=== PATIENT | female | born 1980 | race Caucasian/White ===

== ENCOUNTER 2024-07-10 23:54 | Inpatient (IN) | payer OTHER, SELFPAY ==
[2024-07-11 00:45] LABS: Specific Gravity 1.026 (1.005-1.030); Specific Gravity 1.027 (1.005-1.030); Sqamous Epithelial <5 /HPF (None Seen); Urine Bacteria 20-50 /HPF (<20); Urine Bilirubin NEGATIVE (Negative); Urine Blood 2+ (Negative); Urine Clarity Extremely Turbid (Clear); Urine Color Yellow (Yellow); Urine Culture Reflex Order REFLEXED; Urine Glucose NEGATIVE (Negative); Urine Ketones 1+ (Negative); Urine Microscopic Reflex YN ORDER UMIC; Urine Mucus 1+ /HPF (None Seen); Urine Nitrite NEGATIVE (Negative); Urine Protein 1+ (Negative); Urine Urobilinogen Normal (Normal); Urine pH 5.5 (5.0-7.0)
[2024-07-11] MEDS ORDERED: ONDANSETRON 4 MG/2 ML VIAL ONE (00:52)
[2024-07-11] MEDS ORDERED: NA CHLORIDE 0.9% 1,000 ML ONE ×2 (00:52→03:51)
[2024-07-11] MEDS ORDERED: MORPHINE 4 MG/ML SYR ONE ×2 (00:52→03:50)
[2024-07-11 00:57] LABS: Absolute Lymphocytes (CBC) 2.1 K/uL (0.7-4.9); Absolute Monocytes 1.9 K/uL (0.1-1.3); Basophils % 0.3 % (0-1.3); Eosinophils % 0.1 % (0-4.4); Hematocrit 41.7 % (36.0-45.0); Hemoglobin 13.6 g/dL (12.0-15.0); Lymphocytes % 13.9 % (15.3-44.8); MCH 29.5 pg (27.0-35.0); MCHC 32.7 g/dL (32.0-36.0); MCV 90.2 fL (80-100); MPV 9.6 fL (7.6-11.3); Monocytes % 12.5 % (3.3-12.3); Neutrophils % 73.2 % (41.7-73.7); Platelets 368 thou/uL (152-406); RBC Red Blood Cell Count 4.63 M/uL (3.86-4.86); Red Cell Distribution Width 14.9 % (12.1-15.2)
[2024-07-11 01:03] LABS: PT Prothrombin Time 14.3 SECONDS (9.4-12.5); PTT, Activated Partial Thromb 30.1 SECONDS (24.3-36.9); Protime INR 1.29
[2024-07-11] MEDS ORDERED: CEFTRIAXONE 1000 MG/VIAL ONE (01:08)
[2024-07-11] MEDS ORDERED: NA CHLORIDE 0.9% 100 ML ONE (01:08)
[2024-07-11 01:10] LABS: AST/SGOT 12 U/L (15-37); Albumin/Globulin Ratio 0.6 (1.1-1.8); Alkaline Phosphatase 86 U/L (45-117); Anion Gap 9.4 mEq/L (5.0-15.0); BUN Blood Urea Nitrogen 19 mg/dL (7-18); Bicarbonate 29 mEq/L (21-32); Bilirubin Total 0.5 mg/dL (0.2-1.0); Glomerular Filtration Rate 68 ml/min (=/>90); Glucose Level 98 mg/dL (74-106); Lipase 14 U/L (13-75); Potassium 3.4 mEq/L (3.5-5.1); Sodium Level 131 mEq/L (136-145)
[2024-07-11 01:12] LABS: ALT/SGPT < 14 U/L (13-56)
--- NOTE | 2024-07-11 03:43 | RAD REPORT ---
EXAM: CT Abdomen and Pelvis With Intravenous Contrast CLINICAL HISTORY: ABD pain, RUQ pain w/ nausea / vomiting for 3 days . TECHNIQUE: Axial computed tomography images of the abdomen and pelvis with intravenous contrast. Sagittal and coronal reformatted images were created and reviewed. This CT exam was performed using one or more of the following dose reduction techniques: automated exposure control, adjustment of the mA a nd/or kV according to patient size, and/or use of iterative reconstruction technique. COMPARISON: No relevant prior studies available. FINDINGS: Lung bases: Bilateral subsegmental atelectasis/pleural parenchymal scar. ABDOMEN: Liver: Unremarkable. No mass. Gallbladder and bile ducts: Unremarkable. No calcified stones. No ductal dilation. Pancreas: Unremarkable. No mass. No ductal dilation. Spleen: Unremarkable. No splenomegaly. Adrenals: Unremarkable. No mass. Kidneys and ureters: Heterogeneous right renal cortical enhancement with perinephric stranding and minimal urothelial thickening. Lobulated left renal contour with areas of cortical thinning/scar. No hydronephrosis. Stomach and bowel: Moderate stool within the proximal to mid large bowel. No obstruction. No muco anamika thickening. PELVIS: Appendix: Normal caliber appendix. No findings to suggest acute appendicitis. Bladder: The urinary bladder is partially decompressed. Reproductive: Unremarkable as visualized. ABDOMEN and PELVIS: Intraperitoneal space: Unremarkable. No free air. No significant fluid collection. Bones/joints: No acute fracture. No dislocation. Soft tissues: Unremarkable. Vasculature: Unremarkable. No abdominal aortic aneurysm. Lymph nodes: Unremarkable. No enlarged lymph nodes. IMPRESSION: 1. Findings suggestive of right-sided pyelonephritis. 2. Other findings as above. Electronically signed by: Juan Luis Waterman MD 07/11/2024 03:39 AM [facility] Due to temporary technical issues with the PACS/[employer] reporting system, reports are being sunny d by the in-house radiologist without review as a courtesy to ensure prompt reporting the interpreting radiologist is fully responsible for the content of the report. Transcribed Date/Time: 07/11/2024 3:43 AM
--- NOTE | 2024-07-11 03:51 | ER ---
Nurse's Notes [facility] Name: Aicha Levi Age: 44 yrs Sex: Female : 1980 Arrival Date: 07/10/2024 Time: 23:54 Bed 5 Private MD: Diagnosis: Pyelonephritis acute;Sepsis, unspecified organism Presentation: 07/11 00:00 Chief complaint: Patient states: NUMBNESS OF FACE, RIGHT UPPER QUADRANT PAIN, N/V FOR ha1 THE PAST THREE DAYS. 00:00 Coronavirus screen: At this time, the client does not indicate any symptoms associated ha1 with coronavirus-19. Ebola Screen: No symptoms or risks identified at this time. Initial Sepsis Screen: Does the patient meet any 2 criteria? No. Patient's initial sepsis screen is negative. Does the patient have a suspected source of infection? No. Patient's initial sepsis screen is negative. Risk Assessment: Do you want to hurt yourself or someone else? Patient reports no desire to harm self or others. Onset of symptoms was July 11, 2024. 00:00 Method Of Arrival: Ambulatory ha1 00:00 Acuity: JD 3 ha1 Triage Assessment: 00:33 General: Appears uncomfortable, Behavior is cooperative. Pain: Complains of pain in ha1 right upper quadrant Pain radiates to back Pain currently is 9 out of 10 on a pain scale. Neuro: Level of Consciousness is awake, alert, obeys commands, Oriented to person, place, time, situation. GI: Reports nausea, vomiting. 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 - Infectious Disease History:: Denies. - Social history:: Smoking status: Patient reports the use of cigarette tobacco products, smokes one-half pack cigarettes per day. Screenin:59 [facility] ED Fall Risk Assessment (Adult) History of falling in the last 3 months, cp4 including since admission No falls in past 3 months (0 pts) Confusion or Disorientation No (0 pts) Intoxicated or Sedated No (0 pts) Impaired Gait No (0 pts) Mobility Assist Device Used No (0 pt) Altered Elimination No (0 pt) Score/Fall Risk Level 0 - 2 = Low Risk Oriented to surroundings, Maintained a safe environment, Assessed \T\ reinforced patient's understanding of fall precautions, Hourly rounding (assess needs \T\ fall precautionary measures) done. Abuse screen: Denies threats or abuse. Nutritional screening: No deficits noted. Tuberculosis screening: No symptoms or risk factors identified. Assessment: 00:59 General: Appears in no apparent distress. uncomfortable, Behavior is calm, cooperative, cp4 appropriate for age. Pain: Complains of pain in back and abdomen and right upper quadrant Pain does not radiate. Pain currently is 9 out of 10 on a pain scale. Neuro: Level of Consciousness is awake, alert, obeys commands, Oriented to person, place, time, situation. Cardiovascular: Patient's skin is warm and dry. Rhythm is sinus tachycardia. Respiratory: Airway is patent Respiratory effort is even, unlabored. GI: Abdomen is flat, non-distended, Bowel sounds present X 4 quads. Abdomen is tender to palpation in right upper quadrant Reports nausea, vomiting. : No signs and/or symptoms were reported regarding the genitourinary system. EENT: No signs and/or symptoms were reported regarding the EENT system. Derm: No signs and/or symptoms reported regarding the dermatologic system. Musculoskeletal: No signs and/or symptoms reported regarding the musculoskeletal system. 02:00 Reassessment: Patient appears in no apparent distress at this time. Patient and/or cp4 family updated on plan of care and expected duration. Pain level reassessed. Patient is alert, oriented x 3, equal unlabored respirations, skin warm/dry/pink. 03:00 Reassessment: Patient appears in no apparent distress at this time. Patient and/or cp4 family updated on plan of care and expected duration. Pain level reassessed. Patient is alert, oriented x 3, equal unlabored respirations, skin warm/dry/pink. 04:00 Reassessment: Patient appears in no apparent distress at this time. Patient and/or cp4 family updated on plan of care and expected duration. Pain level reassessed. Patient is alert, oriented x 3, equal unlabored respirations, skin warm/dry/pink. 05:00 Reassessment: Patient appears in no apparent distress at this time. Patient and/or cp4 family updated on plan of care and expected duration. Pain level reassessed. Patient is alert, oriented x 3, equal unlabored respirations, skin warm/dry/pink. Vital Signs: 00:09 BP 130 / 87 RA Supine; Pulse 125 RA; Resp 14; Temp 99.7; Pulse Ox 100% ; Weight 54.43 ty kg (R); Height 5 ft. 1 in. ; Pain 10/10; 01:33 BP 105 / 61; Pulse 122; Resp 18; Pulse Ox 98% ; cp4 02:43 BP 116 / 87; Pulse 118; Resp 18; Pulse Ox 99% ; cp4 03:33 BP 102 / 62; Pulse 114; Resp 18; Pulse Ox 98% ; cp4 04:12 Temp 97.6(T); ha1 04:30 BP 103 / 67; Pulse 113; Resp 18; Pulse Ox 99% ; cp4 05:30 BP 122 / 89; Pulse 111; Resp 18; Pulse Ox 99% ; cp4 00:09 Body Mass Index 22.67 (54.43 kg, 154.94 cm) ty 00:09 Pain Scale: Adult ty ED Course: 07/10 23:58 Patient arrived in ED. [id number] 23:58 Bryan Johnston MD is Attending Physician. rt 07/11 00:09 Patient has correct armband on for positive identification. Bed in low position. Call ty light in reach. Door closed. Noise minimized. Lights dimmed. Moved to private room. Pillow given. Head of bed elevated. Client placed on continuous cardiac and pulse oximetry monitoring. NIBP monitoring applied. 00:33 Triage completed. ha1 00:39 Stacie Rivas is Primary Nurse. cp4 00:45 Initial lab(s) drawn, by me, sent to lab. First set of blood cultures drawn by me, cp4 Second set of blood cultures drawn by me, Urine collected: clean catch specimen, cloudy, EKG done, by ED staff, reviewed by Bryan Johnston MD. 00:59 Provided Education on: abdominal pain. cp4 00:59 No provider procedures requiring assistance completed. Inserted saline lock: 22 gauge cp4 in right antecubital area, using aseptic technique. Blood collected. Flushed with 10 mL NS. 01:34 CT Abd/Pelvis - IV Contrast Only In Process Unspecified. EDMS 02:17 Contact information for family . ty 03:51 Adama Johnson MD is Hospitalizing Provider. rt 05:43 Patient admitted, IV remains in place. cp4 05:44 Arm band placed on right wrist. Patient placed in waiting room. cp4 Administered Medications: 00:56 Drug: NS 0.9% IV 1000 ml IV at 1 bolus Per protocol; to be given as a bolus over 60 cp4 minutes Route: IV; Rate: 1 bolus; Site: right antecubital; 02:15 Follow up: Response: No adverse reaction; IV Status: Completed infusion cp4 00:56 Drug: morphine IVP or IV 4 mg IVP once over 4 mins Route: IVP; Infused Over: 4 mins; cp4 Site: right antecubital; 01:41 Follow up: Response: No adverse reaction cp4 00:56 Drug: Ondansetron IVP 4 mg IVP once; over 2 minutes Route: IVP; Site: right antecubital;cp4 01:41 Follow up: Response: No adverse reaction cp4 01:14 Drug: Rocephin - Rocephin (cefTRIAXone) IVPB 2 grams IVPB once over 30 mins; (mix in cp4 100 mL NS) Route: IVPB; Infused Over: 30 mins; Site: right antecubital; 01:41 Follow up: Response: No adverse reaction; IV Status: Completed infusion cp4 03:55 Drug: morphine IVP or IV 4 mg IVP once over 4 mins Route: IVP; Infused Over: 4 mins; cp4 Site: right antecubital; 04:07 Follow up: Response: No adverse reaction; Pain is decreased cp4 03:55 Drug: NS 0.9% IV 1000 ml IV at 1000 ml once; to be given as a bolus over 60 minutes cp4 Route: IV; Rate: 1000 ml; Site: right antecubital; 05:43 Follow up: Response: No adverse reaction; IV Status: Completed infusion cp4 Medication: 00:59 VIS not applicable for this client. cp4 Outcome: 03:51 Decision to Hospitalize by Provider. rt 05:43 Admitted to Med/surg accompanied by nurse, via wheelchair, with chart, cp4 05:43 Condition: stable 05:43 Instructed on the need for admit, 05:48 Patient left the ED. cp4 Signatures: Dispatcher [employer] Briana [id number] Becka Atkinson, RN RN ha1 Bryan Johnston MD MD rt Stacie Rivas cp4 Ronald Mckeon ty Corrections: (The following items were deleted from the chart) 02:25 02:17 Call prior to discharge ty ty
--- NOTE | 2024-07-11 03:52 | EDPHYS ---
Physician Documentation [facility] Name: Aicha Levi Age: 44 yrs Sex: Female : 1980 Arrival Date: 07/10/2024 Time: 23:54 Bed 5 Private MD: ED Physician Bryan Johnston HPI: 07/11 01:28 This 44 yrs old Female presents to ER via Ambulatory with complaints of Pelvic Pain, rt Numbness Of Face, Nausea/Vomiting. 01:28 Patient presents to the ED with pain to the right flank rating to the right lower rt quadrant starting about 3 days ago. She reported numbness to the face but denies any other numbness, weakness. Reports nausea, vomiting. Denies other acute complaints, symptoms are moderate in severity, no other aggravating alleviating factors.. 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 - Infectious Disease History:: Denies. - Social history:: Smoking status: Patient reports the use of cigarette tobacco products, smokes one-half pack cigarettes per day. ROS: 01:28 Constitutional: Negative for fever, chills, and weight loss, Cardiovascular: Negative rt for chest pain, palpitations, and edema, Respiratory: Negative for shortness of breath, cough, wheezing, and pleuritic chest pain, MS/Extremity: Negative for injury and deformity, Skin: Negative for injury, rash, and discoloration, 01:28 Abdomen/GI: Positive for abdominal pain, nausea and vomiting, Exam: 01:28 Constitutional: This is a well developed, well nourished patient who is awake, alert, rt and in no acute distress. Chest/axilla: Normal chest wall appearance and motion. Nontender with no deformity. No lesions are appreciated. Cardiovascular: Regular rate and rhythm with a normal S1 and S2. No gallops, murmurs, or rubs. Normal PMI, no JVD. No pulse deficits. Respiratory: Lungs have equal breath sounds bilaterally, clear to auscultation and percussion. No rales, rhonchi or wheezes noted. No increased work of breathing, no retractions or nasal flaring. Skin: Warm, dry with normal turgor. Normal color with no rashes, no lesions, and no evidence of cellulitis. MS/ Extremity: Pulses equal, no cyanosis. Neurovascular intact. Full, normal range of motion. 01:28 ECG was reviewed by the Attending Physician. 01:28 Neuro: Cranial nerves II through XII intact, strength and sensation intact in upper and lower extremities, no ataxia on [id number], 01:29 Abdomen/GI: Tenderness to the right flank, right lower quadrant, no rebound, guarding, rt distention, Vital Signs: 00:09 BP 130 / 87 RA Supine; Pulse 125 RA; Resp 14; Temp 99.7; Pulse Ox 100% ; Weight 54.43 ty kg (R); Height 5 ft. 1 in. ; Pain 10/10; 01:33 BP 105 / 61; Pulse 122; Resp 18; Pulse Ox 98% ; cp4 02:43 BP 116 / 87; Pulse 118; Resp 18; Pulse Ox 99% ; cp4 03:33 BP 102 / 62; Pulse 114; Resp 18; Pulse Ox 98% ; cp4 04:12 Temp 97.6(T); ha1 04:30 BP 103 / 67; Pulse 113; Resp 18; Pulse Ox 99% ; cp4 05:30 BP 122 / 89; Pulse 111; Resp 18; Pulse Ox 99% ; cp4 00:09 Body Mass Index 22.67 (54.43 kg, 154.94 cm) ty 00:09 Pain Scale: Adult ty MDM: 00:08 Medical Screening Exam initiated rt 03:51 Differential diagnosis: Pyelonephritis, kidney stone, ectopic , sepsis. Data rt reviewed: vital signs, nurses notes, lab test result(s), EKG, radiologic studies. Consideration of Admission/Observation Patient was admitted/placed on observation. Management of patient was discussed with the following: Hospitalist: Agrees to admit. I considered the following discharge prescriptions or medication management in the emergency department Medications were administered in the Emergency Department. See MAR. Independent interpretation of the following test(s) in the Emergency Department CT Scan: My interpretation is No ureteral stone seen on interpretation of CT scan images. Test considered but Not performed: CT: Patient reported a facial numbness, this is not reproducible on exam, her symptoms seem to be mostly related to the abdomen, I do not suspect a CVA, neuroimaging is not indicated. Post IV fluid administration reassessment for Sepsis: Sepsis focused reassessment complete. Focused assessment performed: July 11, 2024 at 02:00 Heart: Regular rate/rhythm. Lungs: noted to be clear bilaterally. Capillary refill examination performed. Capillary refill noted to be brisk. Skin examination performed. Skin noted to be pink. Neuro: Cardio: Cardiovascular exam improved from previous exam. Heart rate and blood pressure have improved. Respiratory: Respiratory exam did not improve from previous exam. Counseling: I had a detailed discussion with the patient and/or guardian regarding the historical points, exam findings, and any diagnostic results supporting the discharge/admit diagnosis, lab results, radiology results, the need for further work-up and treatment in the hospital. 03:53 Response to treatment: the patient's symptoms have markedly improved after treatment. rt 07/11 00:15 Order name: Blood Culture Adult (2) rt 07/11 00:15 Order name: CBC with Diff; Complete Time: 00:58 rt 07/11 00:15 Order name: CMP; Complete Time: 01:18 rt 07/11 00:15 Order name: Lactate w/ 2H reflex if indic.; Complete Time: 01:18 rt 07/11 00:15 Order name: Protime (+inr); Complete Time: 01:18 rt 07/11 00:15 Order name: Ptt, Activated; Complete Time: 01:18 rt 07/11 00:15 Order name: Urinalysis w/ reflexes; Complete Time: 00:58 rt 07/11 00:15 Order name: Test, Urine; Complete Time: 00:58 rt 07/11 00:15 Order name: Lipase; Complete Time: 01:18 rt 07/11 00:47 Order name: Urine Culture EDMS 07/11 00:59 Order name: Glucose, Ancillary Testing; Complete Time: 01:18 EDMS 07/11 04:29 Order name: Creatine Phosphokinase EDMS 07/11 04:29 Order name: Lactate w/ 2H reflex if indic. EDMS 07/11 04:29 Order name: Liver (Hepatic) Function EDMS 07/11 04:29 Order name: Magnesium EDMS 07/11 04:29 Order name: NT PRO-BNP EDMS 07/11 04:29 Order name: Phosphorus EDMS 07/11 04:29 Order name: Thyroid Stimulating Hormone EDMS 07/11 04:29 Order name: Urinalysis w/ reflexes EDMS 07/11 04:29 Order name: Lipid Profile EDMS 07/11 04:29 Order name: Lipid Profile EDMS 07/11 04:42 Order name: Acetaminophen Level EDMS 07/11 04:42 Order name: Salicylates Level EDMS 07/11 00:59 Order name: CT Abd/Pelvis - IV Contrast Only rt 07/11 00:15 Order name: EKG; Complete Time: 00:16 rt 07/11 04:44 Order name: CONS Physician Consult EDMS 07/11 00:15 Order name: Accucheck; Complete Time: 00:57 rt 07/11 00:15 Order name: Cardiac monitoring; Complete Time: 00:39 rt 07/11 00:15 Order name: EKG - Nurse/Tech; Complete Time: 00:57 rt 07/11 00:15 Order name: IV Saline Lock - Large Bore; Complete Time: 00:39 rt 07/11 00:15 Order name: Labs collected and sent; Complete Time: 00:39 rt 07/11 00:15 Order name: O2 Per Protocol; Complete Time: 00:39 rt 07/11 00:15 Order name: O2 Sat Monitoring; Complete Time: 00:39 rt 07/11 00:15 Order name: Vital Signs; Complete Time: 00:39 rt EC:28 Rate is 121 beats/min. Rhythm is regular, Sinus tachycardia with No ectopy. QRS Ashley is rt Normal. NC interval is normal. QRS interval is normal. QT interval is normal. No Q waves. T waves are Normal. No ST changes noted. Interpreted by me. Administered Medications: 00:56 Drug: NS 0.9% IV 1000 ml IV at 1 bolus Per protocol; to be given as a bolus over 60 cp4 minutes Route: IV; Rate: 1 bolus; Site: right antecubital; 02:15 Follow up: Response: No adverse reaction; IV Status: Completed infusion cp4 00:56 Drug: morphine IVP or IV 4 mg IVP once over 4 mins Route: IVP; Infused Over: 4 mins; cp4 Site: right antecubital; 01:41 Follow up: Response: No adverse reaction cp4 00:56 Drug: Ondansetron IVP 4 mg IVP once; over 2 minutes Route: IVP; Site: right antecubital;cp4 01:41 Follow up: Response: No adverse reaction cp4 01:14 Drug: Rocephin - Rocephin (cefTRIAXone) IVPB 2 grams IVPB once over 30 mins; (mix in cp4 100 mL NS) Route: IVPB; Infused Over: 30 mins; Site: right antecubital; 01:41 Follow up: Response: No adverse reaction; IV Status: Completed infusion cp4 03:55 Drug: morphine IVP or IV 4 mg IVP once over 4 mins Route: IVP; Infused Over: 4 mins; cp4 Site: right antecubital; 04:07 Follow up: Response: No adverse reaction; Pain is decreased cp4 03:55 Drug: NS 0.9% IV 1000 ml IV at 1000 ml once; to be given as a bolus over 60 minutes cp4 Route: IV; Rate: 1000 ml; Site: right antecubital; 05:43 Follow up: Response: No adverse reaction; IV Status: Completed infusion cp4 Disposition Summary: 07/11/24 03:51 Hospitalization Ordered Notes: Hospitalization Status: Inpatient Admission rt Provider: Adama Johnson rt Location: Telemetry/[facility] (Inpatient) rt Condition: Stable rt Problem: new rt Symptoms: have improved rt Bed/Room Type: Standard rt Room Assignment: 409(07/11/24 04:55) cg Diagnosis - Pyelonephritis acute rt - Sepsis, unspecified organism rt Forms: - Medication Reconciliation Form rt - SBAR form rt - Leadership Thank You Letter rt Critical care time excluding procedures: 03:53 Critical care time: Bedside Care: 30 minutes, Consultation: 5 minutes. Total time: 35 rt minutes Signatures: Dispatcher [employer] Lizzie Mcleod RN RN cg Becka Atkinson RN RN ha1 Bryan Johnston MD MD rt Stacie Rivas cp4 Corrections: (The following items were deleted from the chart) 04:55 03:51 rt cg
[2024-07-11] MEDS ORDERED: MORPHINE 2 MG/ML SYR IV PRN (04:27)
[2024-07-11] MEDS ORDERED: METOCLOPRAMIDE 10 MG/2mL INJ IV PRN (04:28)
--- NOTE | 2024-07-11 04:35 | P.HP ---
Certification for Inpatient With expected LOS: <2 Midnights Practitioner: I am a practitioner with admitting privileges, knowledge of patient current condition, hospital course, and medical plan of care. Services: Services provided to patient in accordance with Admission requirements found in Title 42 Section 412.3 of the Code of Federal Regulations Patient History Date of Service: 07/11/24 Reason for admission: pyelonephritis History of Present Illness: 44-year-old woman with no significant past medical history presented to the emergency room complaining of N/V for the past 3 days. The patient states she has been feeling nauseous for the past 3 days, and has vomited multiple times since onset. She denies vomiting any blood. Also, the patient states that she has had RUQ abdominal pain, and a subacute fever for the last 2 days. The patient states her RUQ abdominal pain radiates to her right flank, and is of a sharp quality. She denies urinary symptoms such as frequency, urgency, and dys uria. Patient is a current smoker, and smokes half a pack a day. Home medications list reviewed: Yes (none) - Past Medical/Surgical History Diabetic: No Past Medical History: Patient denies medical history -: tubal ligation 2006 - Family History Family History: Reviewed- Non-Contributory - Social History Smoking Status: Current every day smoker (1/2 pack daily) Counseled patient to stop smoking for: less than 10 minutes Alcohol use: No Review of Systems General: Fever (sub-acute) Respiratory: SOB with Excertion Gastrointestinal: Nausea, Vomiting, Abdominal Pain, No Distention Physical Examination - Vital Signs Temperature: 99.7 F Blood Pressure: 99/60 Pulse: 112 Respirations: 18 Pulse Ox (%): 100 (room air) - Physical Exam General: Alert, Oriented x3 HEENT: Atraumatic, Normocephalic Neck: JVD not distended Respiratory: Normal air movement Cardiovascular: No edema, Regular rate/rhythm, No gallops, No rubs, No murmurs Gastrointestinal: Normal bowel sounds, Non-distended, Tenderness (right upper abdominal quadrant with radiation to right flank) Musculoskeletal: No swelling, No erythema, No tenderness, No warmth Neurological: Normal strength at 5/5 x4 extr, Sensation intact - Studies Laboratory Data (last 24 hrs) 07/11/24 07/11/24 07/11/24 00:35 00:35 00:35 WBC 15.00 H Hgb 13.6 Hct 41.7 Plt Count 368 PT 14.3 H INR 1.29 APTT 30.1 Sodium 131 L Potassium 3.4 L BUN 19 H Creatinine 1.03 H Glucose 98 Total Bilirubin 0.5 AST 12 L ALT < 14 Alkaline Phosphatase 86 Lipase 14 Assessment and Plan - Problems (Diagnosis) (1) Pyelonephritis Current Visit: Yes Status: Acute (2) Hypokalemia Current Visit: Yes Status: Acute (3) Hypotension Current Visit: Yes Status: Acute - Plan Pyelonephritis: Admit to floor NPO diet Continue with IVF Given Zofran, morphine, Rocephin, and IVF in ED Blood cultures collected in ED CT A/P revealed right-sided pyelonephritis, no hydronephrosis Lactic acid within normal limits Lipase within normal limits Hypotension: Most likely from vomiting, c/w IVF Hypokalemia: K 3.4 Potassium replacement protocol ordered - Advance Directives Does patient have a Living Will: No Does patient have a Durable POA for Healthcare: No
[2024-07-11 05:47] VITALS: BMI 23.6
[2024-07-11] MEDS: NA CHLORIDE 0.9% 1,000 ML IV SCH (06:27)
[2024-07-11] MEDS: ONDANSETRON 4 MG/2 ML VIAL IV PRN (06:27)
[2024-07-11 06:39] VITALS: O2SAT 97
[2024-07-11] MEDS ORDERED: FLU (Fluarix Triv) TS24-25(6MOS UP)/PF 45 MCG/0.5 ML Syringe IM ONE (07:15)
[2024-07-11 07:39] LABS: Albumin 2.6 g/dL (3.4-5.0); Albumin/Globulin Ratio 0.6 (1.1-1.8); Alkaline Phosphatase 72 U/L (45-117); Bilirubin Total 0.3 mg/dL (0.2-1.0); Creatine Phosphokinase 25 U/L (26-192); Globulin 4.2 g/dL (2.3-3.5); Magnesium 2.2 mg/dL (1.6-2.4); NT PRO-BNP 153 pg/mL (<125); Phosphorus 2.1 mg/dL (2.5-4.9); Protein, Total 6.8 g/dL (6.4-8.2)
[2024-07-11 07:42] LABS: ALT/SGPT < 14 U/L (13-56); AST/SGOT < 10 U/L (15-37); Bilirubin Direct < 0.2 mg/dL (0-0.2); Bilirubin Indirect, Calculated 0.1 mg/dL (0.2-0.8)
[2024-07-11] MEDS ORDERED: HYDROCODONE/APAP 5/325 MG TAB PO PRN (07:51)
[2024-07-11] MEDS ORDERED: HEPARIN 5000 UNIT/ML 1 ML VIAL SQ SCH (09:00)
--- NOTE | 2024-07-11 09:12 | P.PN ---
Date of Service: 07/11/24 Subjective: Still having abdominal pain/right flank pain with nausea No acute events overnight ROS: 10 point ROS as noted above, otherwise negative Physical exam GEN: Alert, oriented, NAD HEENT: Normal conjunctiva, sclera anicteric CV: Regular rate and rhythm, no edema Pulm: Nonlabored respirations on room air ABD: Soft, mild suprapubic, right upper quadrant tenderness, positive CVA tenderness, nondistended MSK: No joint tenderness Integumentary: No rashes Neuro: Normal speech, normal affect Vitals reviewed Assessment: Sepsis secondary to right pyelonephritis/UTI Plan: Sepsis secondary to right pyelonephritis/UTI Continue with empiric Cipro Urine and blood cultures pending As needed pain medications and antiemetics Advance diet as tolerated Monitor for fever/CBC DVT PPX: Lovenox Code status: Office Machine Technician Spent Managing Pts Care (In Minutes): 35
[2024-07-11] MEDS: CIPROFLOXACIN 400mg IV 400 MG/200 ML BAG IV SCH (09:23)
[2024-07-11] MEDS: POTASSIUM CL SA 10 MEQ TAB PO ONE (09:23)
[2024-07-11] MEDS: ENOXAPARIN 40 MG/0.4 ML SQ SCH (09:24)
[2024-07-11] MEDS: MORPHINE 2 MG/ML SYR IV PRN (17:58)
[2024-07-12] MEDS: POTASS/SODIUM PHOSPHATE 1 PKT POWD.PACK PO SCH (05:58)
[2024-07-12 06:09] LABS: Hematocrit 33.7 % (36.0-45.0); Hemoglobin 11.3 g/dL (12.0-15.0); MCH 30.1 pg (27.0-35.0); MCHC 33.6 g/dL (32.0-36.0); MCV 89.5 fL (80-100); MPV 9.2 fL (7.6-11.3); Platelets 348 thou/uL (152-406); RBC Red Blood Cell Count 3.76 M/uL (3.86-4.86); Red Cell Distribution Width 14.6 % (12.1-15.2)
[2024-07-12 06:30] LABS: Anion Gap 7.8 mEq/L (5.0-15.0); Potassium 3.8 mEq/L (3.5-5.1)
[2024-07-12] MEDS: POTASSIUM CL SA 10 MEQ TAB PO ONE (08:19)
--- NOTE | 2024-07-12 11:37 | EKG ---
Test Date: 2024-07-11 Test Time: 00:47:51 Sql Developer Dba: [employer] MEASUREMENT RESULTS: Intervals: Rate: 121 SD: 138 QRSD: 68 QT: 318 QTc: 451 [place]: P: 74 SD: 138 QRS: 77 T: 72 INTERPRETIVE STATEMENTS: Sinus tachycardia Otherwise normal ECG No previous ECG available for comparison Electronically Signed On 07-12-24 11:32:33 GAS STATION SUPERVISOR by Jaycob Mojica
[2024-07-12 12:30] VITALS: BP 119/60; TEMP 97.6
--- NOTE | 2024-07-12 13:27 | P.DS ---
Admission Date: 07/11/24 Discharge Date: 07/12/24 Disposition: ROUTINE DISCHARGE Discharge Condition: GOOD Reason for Admission: pyelonephritis Brief History of Present Illness: Patient was admitted to the hospital for pyelonephritis Hospital Course: Assessment: Sepsis secondary to right pyelonephritis/UTI Patient was admitted to the hospital for pyelonephritis, on admission her white blood cell count was 15. She had low-grade temps of 99.7 also on admission. She was treated with IV ciprofloxacin and had improvement in her pain, white blood cell count has decreased to 7.7, blood culture showed no growth in 24 hours and preliminary urine culture showed no growth. Given her marked improvement with IV Cipro will transition to oral Cipro, patient stable for discharge at this time. Will prescribe an additional 8 days of Cipro twice daily. Please follow-up with your primary care doctor in 1 to 2 weeks Watch for fevers, worsening pain or vomiting Return to ER for worsening Vital Signs/Physical Exam: Temp Pulse Resp BP Pulse Ox 97.6 F 103 H 20 119/60 98 07/12/24 12:00 07/12/24 12:00 07/12/24 12:00 07/12/24 12:00 07/12/24 12:00 General: Alert, In no apparent distress, Oriented x3 HEENT: Atraumatic, PERRLA Neck: Supple, JVD not distended Respiratory: Clear to auscultation bilaterally, Normal air movement Cardiovascular: Regular rate/rhythm, Normal S1 S2 Gastrointestinal: Normal bowel sounds, No tenderness Musculoskeletal: No tenderness Integumentary: No rashes Neurological: Normal speech, Normal affect Laboratory Data at Discharge: WBC 7.70 thou/uL (4.3-10.9) 07/12/24 05:21 Hgb 11.3 g/dL (12.0-15.0) L 07/12/24 05:21 Hct 33.7 % (36.0-45.0) L 07/12/24 05:21 Plt Count 348 thou/uL (152-406) 07/12/24 05:21 PT 14.3 SECONDS (9.4-12.5) H 07/11/24 00:35 INR 1.29 07/11/24 00:35 APTT 30.1 SECONDS (24.3-36.9) 07/11/24 00:35 Sodium 136 mEq/L (136-145) 07/12/24 05:21 Potassium 3.8 mEq/L (3.5-5.1) 07/12/24 05:21 BUN 9 mg/dL (7-18) 07/12/24 05:21 Creatinine 0.67 mg/dL (0.55-1.02) 07/12/24 05:21 Glucose 91 mg/dL (74-106) 07/12/24 05:21 Phosphorus 2.1 mg/dL (2.5-4.9) L 07/11/24 06:26 Magnesium 2.2 mg/dL (1.6-2.4) 07/11/24 06:26 Total Bilirubin 0.3 mg/dL (0.2-1.0) 07/11/24 06:26 AST < 10 U/L (15-37) L 07/11/24 06:26 ALT < 14 U/L (13-56) 07/11/24 06:26 Alkaline Phosphatase 72 U/L (45-117) 07/11/24 06:26 Lipase 14 U/L (13-75) 07/11/24 00:35 Home Medications: Ciprofloxacin HCl 500 mg PO BID 8 Days #16 tab 07/12/24 New Medications: Ciprofloxacin HCl 500 mg PO BID 8 Days #16 tab Physician Discharge Instructions: Patient was admitted to the hospital for pyelonephritis, on admission her white blood cell count was 15. She had low-grade temps of 99.7 also on admission. She was treated with IV ciprofloxacin and had improvement in her pain, white blood cell count has decreased to 7.7, blood culture showed no growth in 24 hours and preliminary urine culture showed no growth. Given her marked improvement with IV Cipro will transition to oral Cipro, patient stable for discharge at this time. Will prescribe an additional 8 days of Cipro twice daily. Please follow-up with your primary care doctor in 1 to 2 weeks Watch for fevers, worsening pain or vomiting Return to ER for worsening Diet: Regular Activity: Ad brian Followup: NONE,NONE [Primary Care Provider] - 1 Week Time spent managing pt's care (in minutes): 37
== END 2024-07-12 15:43 | disposition home or self-care (01) | DRG 872 ==
LOC: ER 23:54 → ERHOLD 07-11 04:25 → 4TH 07-11 05:18
PROVIDERS: ADMIT Internal Medicine; ATTEND Internal Medicine
DX: A41.9 Sepsis, unspecified organism (principal); N10 Acute pyelonephritis; E87.6 Hypokalemia; F17.210 Nicotine dependence, cigarettes, uncomplicated
CPT/HCPCS: 36415; 74177; 80048; 80053; 80076; 81001; 81025; 82550; 82947; 83605; 83690; 83735; 83880; 84100; 84132; 84439; 84443; 85025; 85027; 85610; 85730; 87040; 87086; 87088; 93005; 96361; 96365; 96375; 99285; J0696; J0744; J1650; J2270; J2405; J7030; Q9967